=== PATIENT | female | born 1990 | race Caucasian/White ===

== ENCOUNTER 2021-05-20 07:25 | Emergency (ER) | payer MEDICAID ==
[~2021-05-20] VITALS: Ht 162.5 cm; Wt 91.1 kg
[2021-05-20] MEDS ORDERED: FAMOTIDINE 20MG/2ML IV (PEPCID) IVP ONE (07:45)
[2021-05-20] MEDS ORDERED: LACTATED RINGERS 1,000 ML IV ONE (07:45)
[2021-05-20] MEDS ORDERED: HYOSCYAMINE 0.125 MG (LEVSIN) TAB SL ONE (07:45)
[2021-05-20] MEDS ORDERED: ONDANSETRON 4 MG/2 ML (SDV) Z0FRAN IVP ONE (07:45)
[2021-05-20 07:51] LABS: BASOPHILS % (AUTO) 0 % (0-10); EOSINOPHILS # (AUTO) 0.1 10^3/uL (0.0-0.3); EOSINOPHILS % (AUTO) 1 % (0-10); HEMATOCRIT 44 % (35-52); HEMOGLOBIN 14.6 g/dL (11.5-16.0); LYMPHOCYTES # (AUTO) 0.6 10^3/uL (1.0-4.0); LYMPHOCYTES % (AUTO) 4 % (12-44); MEAN CORPUSCULAR HEMOGLOBIN 30 pg (25-34); MEAN CORPUSCULAR HGB CONC 34 g/dL (32-36); MEAN CORPUSCULAR VOLUME 89 fL (80-99); MEAN PLATELET VOLUME 10.1 fL (9.0-12.2); MONOCYTES # (AUTO) 0.6 10^3/uL (0.0-1.0); MONOCYTES % (AUTO) 5 % (0-12); NEUTROPHILS # (AUTO) 12.2 10^3/uL (1.8-7.8); NEUTROPHILS % (AUTO) 90 % (42-75); PLATELET COUNT 263 10^3/uL (130-400); WHITE BLOOD COUNT 13.6 10^3/uL (4.3-11.0)
[2021-05-20 07:58] LABS: BILIRUBIN,URINE NEGATIVE (NEGATIVE); CLARITY,URINE CLEAR; COLOR,URINE YELLOW; GLUCOSE, URINE (UA) NEGATIVE (NEGATIVE); KETONES,URINE NEGATIVE (NEGATIVE); LEUKOCYTE ESTERASE ,URINE 1+ (NEGATIVE); NITRITE,URINE NEGATIVE (NEGATIVE); PH,URINE 6.5 (5-9); PROTEIN,URINE NEGATIVE (NEGATIVE)
[2021-05-20 08:02] LABS: POTASSIUM 4.4 MMOL/L (3.6-5.0)
[2021-05-20 08:04] LABS: CALCIUM 9.2 MG/DL (8.5-10.1)
[2021-05-20 08:08] LABS: CREATININE SERUM 0.74 MG/DL (0.60-1.30)
--- NOTE | 2021-05-20 08:13 | ED GI ---
General Chief Complaint: Abdominal/GI Problems Stated Complaint: ABD PAIN Nursing Triage Note: PT AMB TO [facility] 6 WITH COMPLAINT OF ABD PAIN, N/V/D THAT STARTED EARLY THIS MORNING. Source of Information: Patient Exam Limitations: No Limitations History of Present Illness Date Seen by Provider: May 20, 2021 Time Seen by Provider: 07:37 Initial Comments This 31-year-old young lady presents to the emergency room with upper abdominal pain that started last night. She has a cramping aspect of the pain associated with bowel movements. Pain is accompanied by nausea, vomiting, and diarrhea. She could not sleep last night because of the symptoms. She has history of "elevated liver enzymes" and "stones in my appendix". Her gallbladder is surgically absent. She denies drug or alcohol use. She has tenderness to palpation in the epigastrium and left upper quadrant. Allergies and Home Medications Allergies Coded Allergies: Penicillins (Verified Allergy, Unknown, 05/20/21) sulfamethoxazole (Verified Allergy, Unknown, 05/20/21) trimethoprim (Verified Allergy, Unknown, 05/20/21) Patient Home Medication List Home Medication List Reviewed: Yes Review of Systems Review of Systems Constitutional: no symptoms reported EENTM: No Symptoms Reported Respiratory: No Symptoms Reported Cardiovascular: No Symptoms Reported Gastrointestinal: See HPI Genitourinary: No Symptoms Reported Musculoskeletal: no symptoms reported Skin: no symptoms reported Psychiatric/Neurological: No Symptoms Reported Endocrine: No Symptoms Reported Past Rioogco-Rmixam-Nneila Hx Patient Social History Tobacco Use?: No Use of E-Cig and/or Vaping dev: No Substance use?: No Alcohol Use?: No Pt feels they are or have been: No Immunizations Up To Date Influenza Vaccine Up-to-Date: No; Not Current First/Initial COVID19 Vaccinat: NO Second COVID19 Vaccination Isaac: NO Past Medical History Surgeries: Yes Section, Gallbladder Respiratory: No Cardiac: No Neurological: No : No Reproductive Disorders: No Gastrointestinal: Yes (Appendicoliths) Musculoskeletal: No Endocrine: No HEENT: No Cancer: No Psychosocial: Yes Anxiety, PTSD, Bipolar, Depression Integumentary: No Physical Exam Vital Signs Vital Signs - First Documented 05/20/21 07:36 Temp 36.0 Pulse 108 Resp 22 B/P (MAP) 138/89 (105) Pulse Ox 100 O2 Delivery Room Air Capillary Refill : Less Than 3 Seconds Height/Weight/BMI Height: '" Weight: lbs. oz. 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, no motor/sensory deficits, alert, normal mood/affect, oriented x 3 Skin: normal color, warm/dry Progress/Results/Core Measures Results/Orders Lab Results Laboratory Tests Test 05/20/21 07:44 05/20/21 07:48 Range/Units White Blood Count 13.6 H 4.3-11.0 10^3/uL Red Blood Count 4.90 3.80-5.11 10^6/uL Hemoglobin 14.6 11.5-16.0 g/dL Hematocrit 44 35-52 % Mean Corpuscular Volume 89 80-99 fL Mean Corpuscular Hemoglobin 30 25-34 pg Mean Corpuscular Hemoglobin Concent 34 32-36 g/dL Red Cell Distribution Width 13.8 10.0-14.5 % Platelet Count 263 130-400 10^3/uL Mean Platelet Volume 10.1 9.0-12.2 fL Immature Granulocyte % (Auto) 0 % Neutrophils (%) (Auto) 90 H 42-75 % Lymphocytes (%) (Auto) 4 L 12-44 % Monocytes (%) (Auto) 5 0-12 % Eosinophils (%) (Auto) 1 0-10 % Basophils (%) (Auto) 0 0-10 % Neutrophils # (Auto) 12.2 H 1.8-7.8 10^3/uL Lymphocytes # (Auto) 0.6 L 1.0-4.0 10^3/uL Monocytes # (Auto) 0.6 0.0-1.0 10^3/uL Eosinophils # (Auto) 0.1 0.0-0.3 10^3/uL Basophils # (Auto) 0.0 0.0-0.1 10^3/uL Immature Granulocyte # (Auto) 0.1 0.0-0.1 10^3/uL Neutrophils % (Manual) 89 % Lymphocytes % (Manual) 7 % Monocytes % (Manual) 2 % Eosinophils % (Manual) 2 % Basophils % (Manual) 0 % Band Neutrophils 0 % Blood Morphology Comment NORMAL Sodium Level 138 135-145 MMOL/L Potassium Level 4.4 3.6-5.0 MMOL/L Chloride Level 109 H 98-107 MMOL/L Carbon Dioxide Level 19 L 21-32 MMOL/L Anion Gap 10 5-14 MMOL/L Blood Urea Nitrogen 11 7-18 MG/DL Creatinine 0.74 0.60-1.30 MG/DL Estimat Glomerular Filtration Rate 111 BUN/Creatinine Ratio 15 Glucose Level 119 H 70-105 MG/DL Calcium Level 9.2 8.5-10.1 MG/DL Corrected Calcium 9.2 8.5-10.1 MG/DL Total Bilirubin 1.0 0.1-1.0 MG/DL Aspartate Amino Transf (AST/SGOT) 69 H 5-34 U/L Alanine Aminotransferase (ALT/SGPT) 70 H 0-55 U/L Alkaline Phosphatase 74 40-136 U/L C-Reactive Protein High Sensitivity 0.40 0.00-0.50 MG/DL Total Protein 7.0 6.4-8.2 GM/DL Albumin 4.0 3.2-4.5 GM/DL Lipase 11 8-78 U/L Serum Test, Qualitative NEGATIVE NEGATIVE Urine Color YELLOW Urine Clarity CLEAR Urine pH 6.5 5-9 Urine Specific [place] 1.025 H 1.016-1.022 Urine Protein NEGATIVE NEGATIVE Urine Glucose (UA) NEGATIVE NEGATIVE Urine Ketones NEGATIVE NEGATIVE Urine Nitrite NEGATIVE NEGATIVE Urine Bilirubin NEGATIVE NEGATIVE Urine Urobilinogen 0.2 < = 1.0 MG/DL Urine Leukocyte Esterase 1+ H NEGATIVE Urine RBC (Auto) TRACE-I H NEGATIVE Urine RBC 0-2 /HPF Urine WBC 2-5 /HPF Urine Squamous Epithelial Cells 0-2 /HPF Urine Crystals NONE /LPF Urine Bacteria FEW H /HPF Urine Casts NONE /LPF Urine Mucus NEGATIVE /LPF Urine Yeast FEW H /HPF Urine Culture Indicated YES My Orders Orders - SUKUMAR ASHLEY MD Ua Culture If Indicated (05/20/21 07:37) Famotidine Injection (Pepcid Injection) (05/20/21 07:45) Ondansetron Injection (Zofran Injectio (05/20/21 07:45) Hyoscyamine Sl Tablet (Levsin Sl Tablet) (05/20/21 07:45) Ed Iv/Invasive Line Start (05/20/21 07:42) Lactated Ringers (Lr 1000 Ml Iv Solution (05/20/21 07:45) Cbc With Automated Diff (05/20/21 07:42) Comprehensive Metabolic Panel (05/20/21 07:42) Hs C Reactive Protein (05/20/21 07:42) Hcg,Qualitative Serum (05/20/21 07:42) Lipase (05/20/21 07:42) Manual Differential (05/20/21 07:44) Urine Culture (05/20/21 07:48) Medications Given in ED Current Medications Medications Dose Ordered Sig/Alexandra Route Start Time Stop Time Status Last Admin Dose Admin Famotidine 20 mg ONCE ONCE IVP 05/20/21 07:45 05/20/21 07:46 DC 05/20/21 07:53 20 MG Hyoscyamine Sulfate 0.25 mg ONCE ONCE SL 05/20/21 07:45 05/20/21 07:46 DC 05/20/21 07:53 0.25 MG Lactated Ringer's 1,000 ml @ 0 mls/hr Q0M ONCE IV 05/20/21 07:45 05/20/21 07:46 DC 05/20/21 07:53 0 MLS/HR Ondansetron HCl 8 mg ONCE ONCE IVP 05/20/21 07:45 05/20/21 07:46 DC 05/20/21 07:53 8 MG Vital Signs/I&O 05/20/21 07:36 Temp 36.0 Pulse 108 Resp 22 B/P (MAP) 138/89 (105) Pulse Ox 100 O2 Delivery Room Air Blood Pressure Mean: 105 Progress Progress Note #1: Time: 08:12 Progress Note Patient was treated with Zofran, Pepcid, Levsin, and IV fluids. Progress Note #2: Time: 08:29 Progress Note Symptoms improved with treatment. Patient was stable for discharge home. We discussed her labs including slightly elevated liver enzymes. She was advised to have these followed by her primary care provider. See discharge instructions for further discussion Departure Impression Primary Impression: Upper abdominal pain Additional Impressions: Nausea vomiting and diarrhea Elevated liver enzymes Disposition: 01 HOME, SELF-CARE Condition: Improved Departure-Patient Inst. Decision time for Depature: 08:25 Referrals: KELLEN CHING DO (PCP/Family) Primary Care Physician Patient Instructions: Abdominal Pain, Adult ED, Viral Gastroenteritis Add. Discharge Instructions: Your symptoms may be caused by a viral gastroenteritis. If so, symptoms should improve with time. Adhere to a noncarbonated clear liquid diet for the remainder of today. Tomorrow, gradually advance your diet with small quantities of bland food as tolerated. Avoid dairy products, fatty foods, and greasy foods for a couple of days. Use Zofran (ondansetron) as prescribed for nausea vomiting. Use Levsin (hyoscyamine) as prescribed for bowel cramping and diarrhea. Feel free to use an [id number] antacid medication such as Pepcid (famotidine) or omeprazole for further treatment of upper abdominal discomfort. Follow-up with your primary care provider within the next few weeks and discuss monitoring your elevated liver enzymes. Call with questions or concerns. Return to ER if you have worsening symptoms or not improving as expected over the next few days. All discharge instructions reviewed with patient and/or family. Voiced understanding. Scripts Ondansetron (Ondansetron Odt) 4 Mg Tab.rapdis 4 MG SL Q4H PRN for NAUSEA/VOMITING, #10 TAB Prov: SUKUMAR ASHLEY MD 05/20/21 Hyoscyamine Sulfate (Levsin-Sl) 0.125 Mg Tab.subl 1-2 TAB SL Q4H PRN for CRAMPS, #10 TAB 0 Refills Prov: SUKUMAR ASHLEY MD 05/20/21 Copy Copies To 1: KELLEN CHING JOSHUA T MD May 20, 2021 08:13
[2021-05-20 08:15] LABS: BACTERIA,URINE FEW /HPF; RBC,URINE 0-2 /HPF; SQUAMOUS EPITHELIAL CELL,UR 0-2 /HPF; YEAST,URINE FEW /HPF
[2021-05-20 08:18] LABS: BAND NEUTROPHILS 0 %; BASOPHILS % (MANUAL) 0 %; EOSINOPHILS % (MANUAL) 2 %; LYMPHOCYTES % (MANUAL) 7 %; MONOCYTES % (MANUAL) 2 %; NEUTROPHILS % (MANUAL) 89 %; RBC MORPH NORMAL
[2021-05-20] MEDS ORDERED: HYOS0.1283 SL (08:28)
[2021-05-20] MEDS ORDERED: ONDA4TAB11 SL (08:28)
[2021-05-20 08:40] VITALS: BP 130/80
== END 2021-05-20 08:40 | disposition home or self-care (01) ==
LOC: ER 07:27
DX: R10.12 Left upper quadrant pain (principal); R11.2 Nausea with vomiting, unspecified; R19.7 Diarrhea, unspecified; R94.5 Abnormal results of liver function studies
CPT/HCPCS: 36415; 80053; 81000; 83690; 84703; 85007; 85027; 86141; 87088